=== PATIENT | female | born 1955 | race Caucasian/White ===

== ENCOUNTER → 2018-07-23 08:55 | Outpatient (CLI) | payer OTHER, SELFPAY ==
--- NOTE | 2018-07-29 15:14 | PM.PFT.1 ---
Pulmonary Function Test Referral & Results Date Patient Seen: 07/23/18 Requesting provider: Consuelo Albright Results: The spirometry demonstrates an FVC of 2.93 L which is 85% of predicted. The FEV1 was measured at 2.13 L which is 81% of predicted. The FEV1/FVC ratio was 73 which is 93% of predicted. Following the administration of bronchodilator there was no appreciable change. Lung volumes show an SVC of 2.97 L which is 94% of predicted. The diffusing capacity was measured at 13.78 which is 53% of predicted. No hemoglobin value was provided, so no correction for potential anemia could be made, if appropriate. The maximum voluntary ventilation was normal Interpretation: This study demonstrates probably normal spirometry there may be very mild obstructive lung disease based on minimal reduction in FEV1 There is however more significant reduction in diffusing capacity suggesting more significant disease of the capillary alveolar level
== END ==
LOC: RESP 09:01
PROVIDERS: PCP Internal Medicine; Visit Provider Internal Medicine
DX: R06.00 Dyspnea, unspecified (principal); R06.02 Shortness of breath
CPT/HCPCS: 94060; 94726; 94729

== ENCOUNTER → 2018-08-22 15:55 | Outpatient (CLI) | payer OTHER, SELFPAY ==
--- NOTE | 2018-08-22 | DI.CT.S_ITS ---
PROCEDURE: CT CHEST HIGH RESOLUTION INDICATIONS: Abnormal results of pulmonary function studies TECHNIQUE: Noncontrast 1.0 and 5.0 mm thick contiguous axial sections from the pulmonary apex to the posterior costophrenic angles, with 7 mm thick coronal and sagittal MIP reformats. 1 mm thick dynamic expiratory images acquired through the upper, mid, and lower lungs. 1.0 mm thick axial sections acquired from the mario to the posterior costophrenic angles in the prone end-inspiration position. For radiation dose reduction, the following was used: automated exposure control, adjustment of mA and/or kV according to patient size. COMPARISON: None. FINDINGS: Image quality: Excellent. Lungs: No acute consolidation identified. There is diffuse mild subpleural scarring, without definite evidence of honeycombing. 2 mm nodule seen in the posterior right lower lobe on image 168 series 3 is indeterminate. There is also groundglass nodularity measuring approximately 1.6 cm diameter seen within the right middle lobe on image 140 series 3. No definite bronchiectasis. No tree in bud opacities seen. There is mild mosaic lung attenuation suggestive of small airways disease Pleura: No pleural effusions or pneumothorax. Mediastinum: Heart size is normal. No pericardial effusion. Incidental calcified left hilar lymph nodes. Thoracic aorta and central pulmonary arteries are normal in size. Esophagus is normal in caliber. Bones and chest wall: No suspicious bony lesions. No vertebral body compression fractures. Abdomen: Visualized upper abdominal solid organs and bowel loops appear normal. IMPRESSION: Mild scattered scarring and atelectasis. No evidence of honeycombing or definitive fibrosis. Mild mosaic lung attenuation in keeping with small airways disease. 1.6 cm diameter nodular groundglass opacity. This could be postinflammatory in nature. Technically, indolent neoplasm cannot be excluded. Consider initial followup with noncontrast chest CT in 3 months. 2 mm posterior right lung nodule which could be followed up in one year with noncontrast chest CT to exclude early metastatic or malignant possibilities. Dictated by: Pierre Givens M.D. on 08/22/2018 at 17:22 Approved by: Pierre Givens M.D. on 08/22/2018 at 17:30
== END ==
PROVIDERS: PCP Internal Medicine; Visit Provider Internal Medicine
DX: R94.2 Abnormal results of pulmonary function studies (principal); J98.11 Atelectasis; J98.4 Other disorders of lung; R91.8 Other nonspecific abnormal finding of lung field
CPT/HCPCS: 71250

== ENCOUNTER → 2023-07-11 10:12 | Outpatient (CLI) | payer MEDICARE, SELFPAY ==
--- NOTE | 2023-07-11 10:15 | DI.NM.S_ITS ---
PROCEDURE: [place] BONE SCAN WHOLE BODY RADIOPHARMACEUTICAL: 20.7 mCi Tc-99m MDP IV. INDICATIONS: Lung cancer TECHNIQUE: Delayed whole-body scintigrams were obtained approximately 3-4 hours after intravenous injection of radiotracer. Anterior and posterior views were acquired from vertex to feet. Additional left and right oblique views of the thoracic cage were obtained. COMPARISON: [facility], , CT LUNG CANCER SCREENING, 10/08/2021, 8:55. [facility], , CT THORAX WITH CONTRAST, 05/24/2023, 15:08. [facility], CT IVP, 05/08/2023, 16:12. FINDINGS: There are foci of increased activity involving T5 vertebra and the posterior medial aspect of the left 5th rib, suspicious for metastasis. Focal uptake at the sternomanubrial junction is likely degenerative in nature. No lesions are identified in skull, clavicles, scapulae, bony pelvis, and visualized shafts of the long bones. There are foci of increased uptake in cervical, thoracic and lumbar spine correlating with degenerative and postsurgical changes seen on the comparison CT; early metastasis to spine could be obscured by degenerative changes. There are foci of increased periarticular activity most pronounced in shoulders and knees, compatible with degenerative/arthritic changes. IMPRESSION: 1. Abnormal uptake in T5 vertebral body and the left 5th rib are suspicious for metastases. Dictated by: Tommy Moser M.D. on 07/15/2023 at 11:37 Approved by: Tommy Moser M.D. on 07/15/2023 at 11:47
== END ==
PROVIDERS: PCP Internal Medicine; Referring Provider Internal Medicine Hematology & Oncology; Visit Provider Internal Medicine Hematology & Oncology
DX: C34.90 Malignant neoplasm of unspecified part of unspecified bronchus or lung (principal); R94.8 Abnormal results of function studies of other organs and systems
CPT/HCPCS: 78306; A9503

== ENCOUNTER → 2023-12-15 10:13 | Outpatient (CLI) | payer MEDICARE, SELFPAY ==
--- NOTE | 2023-12-15 | DI.MRI.S_ITS ---
PROCEDURE: MR LUMBAR SPINE WO CON INDICATIONS: SPONDYLOSIS WO MYELOPATHY,LUMBAR REGION TECHNIQUE: Noncontrast sagittal T1 spin echo and T2 fast echo, sagittal STIR, and T2 fast spin echo through the lumbar spine. In cases with scoliosis, additional coronal T2 fast spin echo may be performed. COMPARISON: [facility], [place], CT IVP, 05/08/2023, 16:12. FINDINGS: Image quality: Excellent. Surgical changes: Posterior surgical fusion of L3 through L5. Interbody fusion at L3-4 and L4-5. Alignment and Curvature: Slight leftward curvature. Bone Marrow: Type 1 Modic changes at L2-3. Spinal Cord: Conus medullaris terminates at the L1 level. Visualized cord demonstrates normal signal and size. Paraspinous Soft Tissues: No paravertebral masses. T12-L1: Normal appearance. L1-L2: Broad-based disc bulge, left facet effusion. L2-L3: Broad-based disc bulge, facet hypertrophy. Moderate spinal canal narrowing. L3-L4: Normal appearance. L4-L5: Laminectomy. L5-S1: Left-sided hemilaminectomy. IMPRESSION: Posterior and interbody surgical fusion at L3 through L5, without perceived hardware complication. No significant spinal canal narrowing at these levels. Modic type 1 changes at L2-3, with associated broad-based disc bulge and facet hypertrophy resulting in moderate spinal canal narrowing. Dictated by: Nasim Pascal M.D. on 12/16/2023 at 9:42 Approved by: Nasim Pascal M.D. on 12/16/2023 at 9:50
== END ==
LOC: MRI 10:14
PROVIDERS: PCP Internal Medicine; Referring Provider Physical Medicine & Rehabilitation; Visit Provider Physical Medicine & Rehabilitation
DX: M47.816 Spondylosis without myelopathy or radiculopathy, lumbar region (principal); M51.36 Other intervertebral disc degeneration, lumbar region; M48.061 Spinal stenosis, lumbar region without neurogenic claudication; Z98.1 Arthrodesis status
CPT/HCPCS: 72148

== ENCOUNTER → 2024-01-03 09:12 | Outpatient (CLI) | payer MEDICARE, SELFPAY ==
--- NOTE | 2024-01-03 09:13 | DI.NM.S_ITS ---
PROCEDURE: [place] BONE SCAN WHOLE BODY RADIOPHARMACEUTICAL: 20.7 mCi Tc-99m MDP IV. INDICATIONS: LUNG CANCER TECHNIQUE: Delayed whole-body scintigrams were obtained approximately 3-4 hours after intravenous injection of radiotracer. Anterior and posterior views were acquired from vertex to feet. COMPARISON: [facility], , MR LUMBAR SPINE WO CON, 12/15/2023, 10:28. [facility], [place], NM BONE SCAN WHOLE BODY, 07/11/2023, 13:19. FINDINGS: Physiologic uptake is noted within the kidneys and bladder. Increased uptake is present at T5 and the posterior medial aspect the left 5th rib, unchanged. Sternal manubrial uptake is also present. Increased uptake are scattered throughout the cervical, thoracic and lumbar spine overall appearance is unchanged. Mild increased periarticular uptake at the shoulders and knees consistent with degenerative change. IMPRESSION: Stable appearance at T5 and left 5th rib as previously noted suspicious for metastatic disease. Multifocal areas of uptake within the spine suggestive of degenerative change. However, early metastatic disease can be obscured by superimposed degenerative change and have a similar appearance. Dictated by: Sarah Arteaga M.D. on 01/05/2024 at 15:44 Approved by: Sarah Arteaga M.D. on 01/05/2024 at 15:46
== END ==
LOC: NUCM 09:13
PROVIDERS: PCP Internal Medicine; Referring Provider Internal Medicine Medical Oncology; Visit Provider Internal Medicine Medical Oncology
DX: C34.32 Malignant neoplasm of lower lobe, left bronchus or lung (principal)
CPT/HCPCS: 78306; A9503